=== PATIENT | female | born 1960 | race Caucasian/White ===

== ENCOUNTER → 2017-06-24 | Outpatient (CLI) | payer MEDICAID ==
[2017-06-24 11:11] LABS: Blood Urea Nitrogen 10 mg/dL (7-17); Non-African American GFR(MDRD) >60 (>60 ml/min/1.73 sqM)
--- NOTE | 2017-06-26 15:03 | BMR ---
EXAMINATION TYPE: MR breast BILAT wo/w con DATE OF EXAM: 06/24/2017 COMPARISON: NONE HISTORY: FAMILY HISTORY OF MALIGNANT NEOPLASM OF BREAST TECHNIQUE: A series of fat and water weighted images in the long and short axis views of both breasts are obtained in conjunction with dynamic contrast MRI with subtraction technique. The patient was i njected with 15 mL intravenous MultiHance gadolinium contrast. Three-dimensional and additional pos tprocessing imaging is created on independent workstation and reviewed during official interpretation of this study. FINDINGS: Left and right breasts are fatty replaced. There is no suspicious enhancement. There is no evident adenopathy. No skin thickening or architectural distortion. IMPRESSION: Left and right breast BI-RADS 2, benign, routine follow-up recommended.
== END | disposition home or self-care (01) ==
LOC: RADMRIMAIN 10:36
PROVIDERS: ATTEND Obstetrics & Gynecology
DX: Z09 Encounter for follow-up examination after completed treatment for conditions other than malignant neoplasm (principal); Z80.3 Family history of malignant neoplasm of breast; I15.9 Secondary hypertension, unspecified
CPT/HCPCS: 82565; 84520; 77059; 0159T; A9577

== ENCOUNTER → 2017-06-24 | Outpatient (CLI) | payer MEDICAID ==
[2017-06-24 11:11] LABS: AST 39 U/L (14-36); Cholesterol 203 mg/dL (<200); HDL Cholesterol 94 mg/dL (40-60); Triglycerides 217 mg/dL (<150)
== END | disposition home or self-care (01) ==
LOC: LABWHC1 10:41
PROVIDERS: ATTEND Internal Medicine
DX: E78.00 Pure hypercholesterolemia, unspecified (principal)
CPT/HCPCS: 36415; 80061; 84450

== ENCOUNTER → 2018-09-15 | Outpatient (CLI) | payer MEDICAID ==
--- NOTE | 2018-09-20 16:13 | BMR ---
EXAMINATION TYPE: MR breast BILAT wo/w con DATE OF EXAM: 09/15/2018 COMPARISON: Screening mammogram dated 10/26/2017 at an outside institution and April 22, 2016. MR of th e breasts dated 06/24/2017. HISTORY: Family Hx of Malignant Neoplasm of Breast. High risk screening. TECHNIQUE: A series of fat and water weighted images in the long and short axis views of both breasts are obtained in conjunction with dynamic contrast MRI with subtraction technique. The patient was i njected with 7.5 mL intravenous Gadavist gadolinium contrast. Three-dimensional and additional post processing imaging is created on independent workstation and reviewed during official interpretation of this study. FINDINGS: The breasts are composed of scattered fibroglandular tissue. There is minimal symmetric aylin kground parenchymal enhancement. Small T2 hyperintense intramedullary lymph node is seen on the right measuring 3 mm with a fatty notch in the upper outer quadrant approximately 11 cm from the nipple. S imilarly on the left T2 hyperintense intramammary lymph node containing internal fat is seen of the a xillary tail. Prominent left-sided superficial vascularity is noted. There is no suspicious mass or nonmass enhancement in either breast. No suspicious intramammary, inte rnal mammary or axillary adenopathy. IMPRESSION: BI-RADS 1-No MRI evidence of malignancy. Annual screening mammography is recommended in addition to r ecommendation of supplementation with annual screening MRI in high-risk patient.
== END ==
LOC: RADMRIMAIN 11:24
PROVIDERS: ATTEND Obstetrics & Gynecology
DX: Z08 Encounter for follow-up examination after completed treatment for malignant neoplasm (principal); Z80.3 Family history of malignant neoplasm of breast
CPT/HCPCS: 77059; 0159T; A9585

== ENCOUNTER → 2019-11-09 | Outpatient (CLI) | payer MEDICAID ==
--- NOTE | 2019-11-19 09:59 | BMR ---
EXAMINATION TYPE: MR breast BILAT wo/w con DATE OF EXAM: 11/09/2019 COMPARISON: Prior bilateral breast mammogram September 15, 2018. Outside bilateral breast mammogram Nov 2016 HISTORY: Screening For Malignant Neoplasm CONTRAST: Multiplanar, multisequence images of the breasts were acquired utilizing 7.5 mL intravenous Gadavist gadolinium contrast. TECHNIQUE: A series of fat and water weighted images in the long and short axis views of both breasts are obtained in conjunction with dynamic contrast MRI with subtraction technique. Three-dimensional and additional postprocessing imaging is created on independent workstation and reviewed during offi cial interpretation of this study. FINDINGS: There are scattered fibroglandular tissue throughout both breasts redemonstrated. T2-weight ed images show no significant cystic change. Occasional tiny thin-walled cyst laterally in the right breast is noted all measuring under 3 mm in size. No fat-containing masses are present. Dynamic postc ontrast imaging shows no suspicious intramammary adenopathy. There is minimal symmetric background en hancement. There is stable benign-appearing left axillary lymph node axial image 27 for reference. No new axillary adenopathy identified bilaterally. There is no suspicious mass or nonmass enhancement in either breast. No suspicious skin thickening. C hest wall is intact bilaterally. IMPRESSION: No MRI evidence for invasive malignancy in either breast. BI-RADS 1 negative study. Recommendation: Annual bilateral breast mammogram. Consider supplementation with annual MRI in high r isk patient.
== END | disposition home or self-care (01) ==
LOC: RADMRIMAIN 12:05
PROVIDERS: ATTEND Obstetrics & Gynecology
DX: Z12.31 Encounter for screening mammogram for malignant neoplasm of breast (principal); Z80.3 Family history of malignant neoplasm of breast
CPT/HCPCS: 77049; C8937; A9585